=== PATIENT | female | born 1945 | race Caucasian/White ===

== ENCOUNTER 2016-11-15 12:57 | Emergency (ER) | payer MEDICARE, BC ==
[~2016-11-15 12:57] MED LIST: ADVIL200 M1 PO; AMLODIPINE BESYL5 MG PO; ASPIRIN EC81 MG PO; BP MED; CALCIUM; CALCIUM W/VIT D1 TA PO; CHOLESTEROL MED; COLACE100 M1 PO; CYCLOBENZAPRINE10 M1 PO; EQL FISH OIL 1,1 CAP PO; FLEXERIL10 MG PO; H PO; LOPRESSOR50 M1 PO; METOPROLOL TART50 M2 PO; MULTIVITAMIN1 CAP; MULTIVITAMIN1 TAB PO; PERCOCET 5-3251 EACH PO; PREDNISONE10 M1 PO
[2016-11-15] MEDS ORDERED: IBUPROFEN600 M1 PO (13:26)
[2016-11-15] MEDS ORDERED: OXYCODONE HCL5 M1 PO (13:26)
[2016-11-15] MEDS ORDERED: HYDROCHLOROTHIA25 M1 PO (14:27)
[2016-11-15] MEDS ORDERED: LIPITOR40 M1 PO (14:27)
[2016-11-15] MEDS ORDERED: LEXAPRO10 M2 PO (14:27)
[2016-11-15] MEDS ORDERED: NORVASC5 M2 PO (14:31)
[2016-11-15] MEDS ORDERED: OXYCODONE HCL10 M2 PO (16:27)
== END 2016-11-15 16:40 ==
LOC: EDMED 12:57
DX: M54.41 Lumbago with sciatica, right side (principal); Z98.890 Other specified postprocedural states
CPT/HCPCS: J1170; J2270